=== PATIENT | male | born 2000 | race Caucasian/White ===

== ENCOUNTER 2020-09-19 20:44 | Emergency (ER) | payer OTHER ==
[~2020-09-19] VITALS: Ht 170.2 cm; Wt 66.0 kg
--- NOTE | 2020-09-19 20:50 | PHYS DOC ---
Past History Past Medical History: Anxiety General Adult EDM: Chief Complaint: SHORTNESS OF BREATH HPI: HPI: ". I think I am having an anxiety attack or panic attack.. ".. " I was doing a read through.. on play ..I am really stress about it.." Patient is a 20 year old male who presents with above hx and complaints of shortness of breath , chest discomfort left arm discomfort. Symptoms have been all day. No history of previous cardiac disorder. No history recent travel. No history of specific ill contacts. No history of immunosuppression. No history of illicit drug use. No history of coagulopathy with him or family members. Patient does give a history of past anxiety and panic disorder. Patient normally healthy. Review of Systems: Review of Systems: Constitutional: Denies fever or chills Eyes: Denies change in visual acuity HENT: Denies nasal congestion or sore throat Respiratory: Denies cough or shortness of breath Cardiovascular: Complaints of chest discomfort today GI: Denies abdominal pain, nausea, vomiting, bloody stools or diarrhea : Denies dysuria Musculoskeletal: Denies back pain or joint pain Integument: Denies rash Neurologic: Denies headache, focal weakness or sensory changes Endocrine: Denies polyuria or polydipsia Lymphatic: Denies swollen glands Psychiatric: Denies depression or anxiety Family History: Family History: Noncontributory to presentation Current Medications: Current Meds: See nursing for home meds Allergies: Allergies: Allergic to penicillin Physical Exam: PE: Constitutional: Well developed, well nourished, no acute distress, non-toxic appearance. [] HENT: Normocephalic, atraumatic, bilateral external ears normal, oropharynx moist, no oral exudates, nose normal. [] Eyes: PERRLA, EOMI, conjunctiva normal, no discharge. [] Neck: Normal range of motion, no tenderness, supple, no stridor. [] Cardiovascular:Heart rate regular rhythm, no murmur [] Lungs & Thorax: Bilateral breath sounds clear to auscultation [] Abdomen: Bowel sounds normal, soft, no tenderness, no masses, no pulsatile masses. [] Skin: Warm, dry, no erythema, no rash. [] Back: No tenderness, no CVA tenderness. [] Extremities: No tenderness, no cyanosis, no clubbing, ROM intact, no edema. No cording appreciated Neurologic: Alert and oriented X 3, normal motor function, normal sensory function, no focal deficits noted. [] Psychologic: Affect very anxious,, judgement normal, mood normal. [] EKG: EKG: My interpretation of EKG shows a sinus rhythm at 63 bpm. No acute morphology [] Radiology/Procedures: Radiology/Procedures: [][address] [id number] IMAGING REPORT Signed PATIENT: SEVERIANO SYED ACCOUNT: [id number] : 2000 LOCATION: ER AGE: 20 SEX: M EXAM STATUS: REG ER ORD. PHYSICIAN: JEROME IVY MD REASON: cp, dyspnea PROCEDURE: CHEST PA & LATERAL EXAM: PA and Lateral Views of the Chest DATE: 09/19/2020 10:07 PM INDICATION: Reason: cp, dyspnea / Spl. Instructions: / History: COMPARISON: No Prior FINDINGS: The heart is not enlarged. Mediastinal and hilar contours are normal. No focal parenchymal airspace opacity. No pleural effusion or pneumothorax. IMPRESSION: 1. No radiographic evidence for acute cardiopulmonary process. Electronically signed by: Luis Arreaga MD (09/19/2020 11:00 PM) [facility] DICTATED AND SIGNED BY: LUIS ARREAGA MD DATE: 09/19/20 2300 CC: JEROME IVY MD; PCP,NO ~MTH0 0 Heart Score: C/O Chest Pain: Yes HEART Score for Chest Pain: HEART Score for Chest Pain Response (Comments) Value History Slighlty/Non-Suspicious 0 ECG Normal 0 Age < 45 0 Risk Factors No Risk Factors 0 Troponin < Normal Limit 0 Total 0 Risk Factors: Risk Factors: DM, Current or recent (<one month) smoker, HTN, HLP, family history of CAD, obesity. Risk Scores: Score 0 - 3: 2.5% MACE over next 6 weeks - Discharge Home Score 4 - 6: 20.3% MACE over next 6 weeks - Admit for Clinical Observation Score 7 - 10: 72.7% MACE over next 6 weeks - Early Invasive Strategies Course & Med Decision Making: Course & Med Decision Making Pertinent Labs and Imaging studies reviewed. (See chart for details) Patient take a daily aspirin. Patient follow-up primary care. Consider outpatient stress testing. Return if any concerns. Impression: 1. Atypical chest discomfort 2. Anxiety disorder-suspect panic attack [] Dragon Disclaimer: Dragon Disclaimer: This electronic medical record was generated, in whole or in part, using a voice recognition dictation system. Departure Departure: Referrals: PCP,NO (PCP) [facility] Disclaimer This chart was dictated in whole or in part using Voice Recognition software in a busy, high-work load, and often noisy Emergency Department environment. It may contain unintended and wholly unrecognized errors or omissions. JEROME IVY MD Sep 19, 2020 20:50
[2020-09-19 21:32] VITALS: BP 117/74
[2020-09-19] MEDS ORDERED: ASPIRIN 325 MG TABLET PO ONE (22:15)
[2020-09-19 22:19] LABS: CALCIUM 9.3 mg/dL (8.5-10.1); CREATININE 1.2 mg/dL (0.7-1.3); GFR 76.4; POTASSIUM 3.7 mmol/L (3.5-5.1)
[2020-09-19 22:26] LABS: ALBUMIN 4.4 g/dL (3.4-5.0); DIRECT BILIRUBIN 0.3 mg/dL (0.0-0.2); TOTAL BILIRUBIN 1.7 mg/dL (0.2-1.0); TOTAL PROTEIN 7.2 g/dL (6.4-8.2)
[2020-09-19 22:38] LABS: BASO % 1 % (0-3); EOS # 0.1 x10^3/uL (0.0-0.7); EOS % 1 % (0-3); HEMATOCRIT 42.5 % (39.0-53.0); HEMOGLOBIN 14.2 g/dL (13.0-17.5); LYMPH # 2.5 x10^3/uL (1.0-4.8); LYMPH % 38 % (24-48); MEAN CORPUSCULAR HEMOGLOBIN 30 pg (25-35); MEAN CORPUSCULAR HGB CONC 34 g/dL (31-37); MEAN CORPUSCULAR VOLUME 90 fL (79-100); MONO # 0.7 x10^3/uL (0.0-1.1); MONO % 10 % (0-9); NEUT # 3.3 x10^3uL (1.8-7.7); NEUT % 51 % (31-73); PLATELET COUNT 228 x10^3/uL (140-400); RED BLOOD COUNT 4.73 x10^6/uL (4.30-5.70); RED CELL DISTRIBUTION WIDTH 12.8 % (11.5-14.5); WHITE BLOOD COUNT 6.6 x10^3/uL (4.0-11.0)
--- NOTE | 2020-09-19 23:02 | RAD ---
EXAM: PA and Lateral Views of the Chest DATE: 09/19/2020 10:07 PM INDICATION: Reason: cp, dyspnea / Spl. Instructions: / History: COMPARISON: No Prior FINDINGS: The heart is not enlarged. Mediastinal and hilar contours are normal. No focal parenchymal airspace opacity. No pleural effusion or pneumothorax. IMPRESSION: 1. No radiographic evidence for acute cardiopulmonary process. Electronically signed by: Luis Arreaga MD (09/19/2020 11:00 PM) [facility]
--- NOTE | 2020-09-20 07:00 | EKG ---
[address] [address] Test Date: 2020-09-19 Test Time: 21:54:49 Pat Name: GEENA SYED Department: Room: Gender: M Hander In: : 2000 Requested By: JEROME IVY Order Number: [id number] Reading MD: Measurements Intervals [place] Rate: 63 P: 51 FL: 140 QRS: 58 QRSD: 92 T: 41 QT: 408 QTc: 421 Interpretive Statements SINUS ARRHYTHMIA OTHERWISE NORMAL ECG RI6.02 Compared to ECG 09/19/2020 21:53:08 Sinus rhythm no longer present
== END 2020-09-19 23:33 | disposition home or self-care (01) ==
LOC: ER 20:44
DX: R07.89 Other chest pain (principal); F41.9 Anxiety disorder, unspecified; Z88.0 Allergy status to penicillin
CPT/HCPCS: 36415; 71046; 80048; 80076; 82550; 84484; 85025; 93005; 99285-25